=== PATIENT | female | born 2005 | race African-American/Black ===

== ENCOUNTER 2023-12-02 08:39 | Emergency (ER) | payer OTHER, SELFPAY ==
[2023-12-02 08:42] VITALS: BP 147/88; PULSE 90; RESP 16; TEMP 36.7; O2SAT 96; BMI 31.5
--- NOTE | 2023-12-02 08:53 | ED_ITS ---
HPI - Eye Problem General Chief complaint: Eye Problems Stated complaint: PINK EYE Time Seen by Provider: 12/02/23 08:43 Source: patient Mode of arrival: walk-in History of Present Illness HPI Narrative: 18-year-old female presents for bilateral eye redness and drainage. She's had it for a few days. She is being seen with her son who has the same symptoms. No trauma or foreign body. Related Data Previous Rx's Medication Instructions Recorded sulfacetamide sodium 10 % eye drops 2 drp ophthalmic (eye) Q4H #15 mL 12/02/23 Allergies Allergy/AdvReac Type Severity Reaction Status Date / Time No Known Drug Allergies Allergy Verified 12/02/23 08:48 Review of Systems ROS Narrative A ten point review of systems is negative except as noted above. Exam Narrative Exam Narrative: Nurses note and vital signs reviewed and patient is not hypoxic. General: The patient appears well and in no apparent distress. Patient is resting comfortably on cart. Skin: Warm, dry, no pallor noted. There is no rash noted. Head: Normocephalic, atraumatic Eye: bilateral conjunctival injection with bilateral drainage. No periorbital swelling or erythema Ears, Nose, Mouth, and Throat: oral mucosa is moist. Nares patent. no pharyngeal exudate or erythema Cardiovascular: Regular Rate and Rhythm Respiratory: Patient is in no distress, no accessory muscle use, lungs are clear to auscultation, no wheezing, rales or rhonchi Back: non-tender GI: soft and nontender Musculoskeletal: The patient has no evidence of calf tenderness, no pitting edema, symmetrical pulses noted bilaterally Neurological: A&O, normal speech Psychiatric: Cooperative Constitutional Vital Signs, click to edit/add: Last Vital Signs Temp 98.1 F 12/02/23 08:42 Pulse 90 12/02/23 08:42 Resp 16 12/02/23 08:42 BP 147/88 H 12/02/23 08:42 Pulse Ox 96 12/02/23 08:42 O2 Del Method Room Air 12/02/23 08:42 Course Vital Signs Vital signs: Vital Signs Temperature 98.1 F 12/02/23 08:42 Pulse Rate 90 12/02/23 08:42 Respiratory Rate 16 12/02/23 08:42 Blood Pressure 147/88 H 12/02/23 08:42 Pulse Oximetry 96 12/02/23 08:42 Oxygen Delivery Method Room Air 12/02/23 08:42 Temperature 98.1 F 12/02/23 08:42 Pulse Rate 90 12/02/23 08:42 Respiratory Rate 16 12/02/23 08:42 Blood Pressure 147/88 H 12/02/23 08:42 Pulse Oximetry 96 12/02/23 08:42 Oxygen Delivery Method Room Air 12/02/23 08:42 MDM - Eye Problem MDM Narrative Medical decision making narrative: my clinical impressions that she has conjunctivitis. Treatment diagnosis and fol low-up were discussed with the patient. Differential Diagnosis Differential diagnosis: Likely corneal abrasion, conjunctivitis, periorbital cellulitis and subconjunctival hemorrhage Discharge Plan Discharge Chief Complaint: Eye Problems Clinical Impression: Bacterial conjunctivitis Patient Disposition: Home, Self-Care Time of Disposition Decision: 08:52 Condition: Good Mode of Transportation: Private Vehicle Prescriptions / Home Meds: New sulfacetamide sodium 10 % drops 2 drp ophthalmic (eye) Q4H Qty: 15 0RF Instructions: Conjunctivitis (ED) Stand Alone Forms: Portal Instructions
== END 2023-12-02 09:12 | disposition home or self-care (01) ==
PROVIDERS: Emergency Provider Emergency Medicine
DX: H10.9 Unspecified conjunctivitis (principal)
CPT/HCPCS: 99284